=== PATIENT | female | born 1965 | race Caucasian/White ===

== ENCOUNTER 2020-07-06 13:58 | Outpatient (CLI) | payer BC, SELFPAY ==
--- NOTE | ~2020-07-06 | MM_ITS ---
EXAMINATION: MM screening [facility] BI w tiffani HISTORY: Screening mammogram TECHNIQUE: Craniocaudal and mediolateral oblique 3-D tomosynthesis images were obtained and synthetic 2-D images were generated. CAD analysis was submitted and interpreted. COMPARISON: 06/10/2019, 12/30/2018, 12/19/2018, 10/26/1917, 11/02/2016 BREAST PARENCHYMAL COMPOSITION: There are scattered areas of fibroglandular density. FINDINGS: RIGHT BREAST: There is a possible mass in the middle third of the central/lower breast best appreciat ed 4 cm from the nipple on the craniocaudal view. LEFT BREAST: There is no evidence of suspicious mass, calcification, or architectural distortion to s uggest malignancy. There has been no significant interval change. IMPRESSION: 1. Possible right breast mass. 2. Additional mammographic views and possible breast ultrasound are recommended. BI-RADS Category 0: Incomplete: Needs additional imaging evaluation. Reviewed, dictated and finalized at location A. IMPRESSION: 1. Possible right breast mass. 2. Additional mammographic views and possible breast ultrasound are recommended . BI-RADS Category 0: Incomplete: Needs additional imaging evaluation.
== END 2020-07-06 13:59 | disposition home or self-care (01) ==
LOC: ANHIMG 14:01
PROVIDERS: PCP Family Medicine; Visit Provider Family Medicine
DX: Z12.31 Encounter for screening mammogram for malignant neoplasm of breast (principal)
CPT/HCPCS: 77063; 77067

== ENCOUNTER 2020-08-09 12:51 | Outpatient (CLI) | payer BC, SELFPAY ==
--- NOTE | ~2020-08-09 | MMUS_ITS ---
EXAMINATION: MM diagnostic mammo unilat RT, US breast RT complete HISTORY: Follow-up right breast asymmetry TECHNIQUE: Additional 3-D tomosynthesis images of the right breast were performed and synthetic 2-D i mages were generated. CAD analysis was submitted and interpreted. High resolution right breast ultras ound was performed. COMPARISON: Comparison to multiple prior studies sequentially, with oldest reviewed study dated 11/02. BREAST PARENCHYMAL COMPOSITION: Breast composed of scattered areas of fibroglandular density FINDINGS: MAMMOGRAPHIC FINDINGS: There are no suspicious masses, calcifications or architectural distortion in the right breast to sug gest malignancy. ULTRASOUND: There is normal heterogeneous echotexture without focal solid or cystic mass. No evidence for maligna ncy. IMPRESSION: 1. No evidence for malignancy in the right breast. 2. Routine yearly screening mammogram and regular clinical breast examination are recommended. BI-RADS Category 1: Negative Reviewed, dictated and finalized at location A. STRATEGIC PARTNERSHIPS IMPRESSION: 1. No evidence for malignancy in the right breast. 2. Routine yearly screening mammogram and regular clinical breast examination a re recommended. BI-RADS Category 1: Negative
== END 2020-08-09 12:52 | disposition home or self-care (01) ==
PROVIDERS: PCP Family Medicine; Visit Provider Family Medicine
DX: R92.8 Other abnormal and inconclusive findings on diagnostic imaging of breast (principal)
CPT/HCPCS: 76641; 77065

== ENCOUNTER 2021-10-04 10:00 | Outpatient (CLI) | payer BC, SELFPAY ==
--- NOTE | ~2021-10-04 | MM_ITS ---
EXAMINATION: MM screening [facility] w tiffani HISTORY: Screening TECHNIQUE: Craniocaudal and mediolateral oblique 3-D tomosynthesis images were obtained and synthetic 2-D images were generated. CAD analysis was submitted and interpreted. COMPARISON: Comparison to multiple prior studies sequentially, with oldest reviewed study dated 11/04. BREAST PARENCHYMAL COMPOSITION: There are scattered areas of fibroglandular density. FINDINGS: There is no evidence of suspicious mass, calcification, or architectural distortion to sugg est malignancy in either breast. There has been no suspicious interval change. IMPRESSION: 1. No mammographic evidence of malignancy. 2. Recommend routine screening mammography in one year. BI-RADS Category 1: Negative Reviewed, dictated and finalized at location A. ETING FINANCIAL ANALYST
== END 2021-10-04 10:01 | disposition home or self-care (01) ==
LOC: ANHIMG 10:03
PROVIDERS: PCP Family Medicine; Visit Provider Family Medicine
DX: Z12.31 Encounter for screening mammogram for malignant neoplasm of breast (principal)
CPT/HCPCS: 77063; 77067

== ENCOUNTER 2022-07-11 12:27 | Outpatient (CLI) | payer BC, SELFPAY ==
--- NOTE | ~2022-07-11 | DEXA_ITS ---
Bone Density Report Name: JCARLOS AMADOR Age: 56 Sex: Female Ethnicity: White Date of : 1965 Indication: postmenopausal; screening for osteoporosis; hysterectomy; Referring Provider: NADINE, JEFFERY Jessica Study: Bone densitometry was performed. Exam Date: July 11, 2022 Accession number: [id number] Bone Density: Region BMD T-score Z-score Classification AP Spine(L1, L3, L4) 1.199 1.3 2.6 Normal Femoral Neck (Left) 0.992 1.3 2.5 Normal Total Hip (Left) 1.091 1.2 2.0 Normal Femoral Neck (Right) 0.996 1.3 2.5 Normal Total Hip (Right) 1.109 1.4 2.2 Normal Total Hip Mean 1.100 1.3 2.1 Normal World Health Organization criteria for BMD impression classify patients as: Normal (T-score at or above -1.0), Osteopenia (T-score between -1.0 and -2.5), or Osteoporosis (T-score at or below -2.5). 10-year Fracture Risk: FRAX not reported because: All T-scores for Spine Total, Hip Total, Femoral Neck at or above -1.0 Clinical Information Provided by Patient: Has the following medical conditions: Hysterectomy Patient maximum height was 66 Menopause Age: 45 Drinks caffeinated beverages Onset of menses at age 9 Number of children 7 Impression: The patient has normal bone mass. Discussion: BONE DENSITY IS ABOVE THE MINIMUM DESIRABLE LEVEL AT ALL SKELETAL SITES TESTED. This patient?s bone mineral density is above the minimum desirable level (T-score -1.0 or better) at all sites measured. The patient should follow a healthful lifestyle (good nutrition with adequate calcium and vitamin D, and appropriate weight-bearing exercise). Follow-Up: Consider repeating this study in 5 years or sooner if there is some new clinical indication. Reported by: [facility] on 07/12/2022 3:42:00 PM. Reviewed, dictated and finalized at location A. [facility] CENTERDarryl
== END 2022-07-11 12:28 | disposition home or self-care (01) ==
PROVIDERS: PCP Family Medicine; Visit Provider Family Medicine
DX: Z78.0 Asymptomatic menopausal state (principal)
CPT/HCPCS: 77080

== ENCOUNTER 2022-10-11 14:37 | Outpatient (CLI) | payer BC, SELFPAY ==
--- NOTE | ~2022-10-11 | MM_ITS ---
EXAMINATION: MM screening [facility] BI w tiffani HISTORY: Screening mammogram TECHNIQUE: Craniocaudal and mediolateral oblique 3-D tomosynthesis images were obtained and synthetic 2-D images were generated. CAD analysis was submitted and interpreted. COMPARISON: 10/04/2021, 08/09/2020, 07/06/2020, 06/10/2019 BREAST PARENCHYMAL COMPOSITION: There are scattered areas of fibroglandular density. FINDINGS: No suspicious mass, calcification, or architectural distortion are identified in either sabrina ast to suggest malignancy. There has been no suspicious interval change. IMPRESSION: 1. No mammographic evidence of malignancy. 2. Recommend routine screening mammography in one year. BI-RADS Category 1: Negative Reviewed, dictated and finalized at location A. UCT TRANSFER PUMPER
== END 2022-10-11 14:38 | disposition home or self-care (01) ==
PROVIDERS: PCP Family Medicine; Visit Provider Family Medicine
DX: Z12.31 Encounter for screening mammogram for malignant neoplasm of breast (principal)
CPT/HCPCS: 77063; 77067

== ENCOUNTER → 2023-07-24 14:36 | Outpatient (CLI) | payer BC, SELFPAY ==
--- NOTE | ~2023-07-24 | XR_ITS ---
XR hand LT min 3V DATE: 07/24/2023 15:06 INDICATION: Left hand pain TECHNIQUE: 3 views COMPARISON: None FINDINGS: There is slight osteoarthritis at the first carpal metacarpal joint. No fracture or dislocation, periosteal reaction or bone destruction, erosive change or chondrocalcino sis. IMPRESSION: Slight osteoarthritis at first carpometacarpal joint Reviewed, dictated and finalized at location B.
--- NOTE | ~2023-07-24 | XR_ITS ---
XR chest 2V DATE: 07/24/2023 15:06 INDICATION: Costochondral junction pain TECHNIQUE: 2 views COMPARISON: None FINDINGS: Normal heart size. No hilar or mediastinal enlargement. No pulmonary infiltrate or consolid ation, pleural effusion or pulmonary vascular congestion or pneumothorax is detected. IMPRESSION: No active cardiopulmonary disease Reviewed, dictated and finalized at location B.
--- NOTE | ~2023-07-24 | XR_ITS ---
XR wrist LT min 3V DATE: 07/24/2023 15:06 INDICATION: Pain TECHNIQUE: 4 views COMPARISON: None FINDINGS: No fracture or dislocation, periosteal reaction or bone destruction. Joint spaces are prese rved. No erosive change or chondrocalcinosis. IMPRESSION: Negative Reviewed, dictated and finalized at location B. IMPRESSION: Negative
--- NOTE | ~2023-07-24 | XR_ITS ---
XR shoulder LT min 2V DATE: 07/24/2023 15:06 INDICATION: Left shoulder pain TECHNIQUE: 4 views COMPARISON: None FINDINGS: No fracture or dislocation, periosteal reaction or bone destruction. No abnormal left shoul cindy soft tissue calcification. IMPRESSION: Negative Reviewed, dictated and finalized at location B. IMPRESSION: Negative
== END ==
PROVIDERS: PCP Family Medicine; Visit Provider Family Medicine
DX: M25.512 Pain in left shoulder (principal); M25.532 Pain in left wrist; M19.042 Primary osteoarthritis, left hand
CPT/HCPCS: 71046; 73030; 73110; 73130

== ENCOUNTER → 2023-11-11 14:00 | Outpatient (CLI) | payer BC, SELFPAY ==
--- NOTE | ~2023-11-11 | MM_ITS ---
EXAMINATION: MM screening [facility] BI w tiffani HISTORY: Screening mammogram TECHNIQUE: Craniocaudal and mediolateral oblique 3-D tomosynthesis images were obtained and synthetic 2-D images were generated. CAD analysis was submitted and interpreted. COMPARISON: 10/11/2022, 10/04/2021, 08/09/2020, 07/06/2020 BREAST PARENCHYMAL COMPOSITION: There are scattered areas of fibroglandular density. FINDINGS: No suspicious mass, calcification, or architectural distortion are identified in either sabrina ast to suggest malignancy. There has been no suspicious interval change. IMPRESSION: 1. No mammographic evidence of malignancy. 2. Recommend routine screening mammography in one year. BI-RADS Category 1: Negative Reviewed, dictated and finalized at location A. RY SAW OPERATOR
== END ==
PROVIDERS: PCP Family Medicine; Visit Provider Family Medicine
DX: Z12.31 Encounter for screening mammogram for malignant neoplasm of breast (principal)
CPT/HCPCS: 77063; 77067

== ENCOUNTER → 2024-07-20 16:23 | Outpatient (CLI) | payer BC, SELFPAY ==
--- NOTE | ~2024-07-20 | XR_ITS ---
EXAMINATION: XR sacroiliac joints min 3V, XR lumbar spine 2-3V DATE: 07/20/2024 17:02 INDICATION: Arthritis check with diffuse back pain TECHNIQUE: 1. Anteroposterior, lateral and coned-down lateral lumbosacral views of the lumbar spine were obtaine d. 2. AP and left and right oblique views of the bilateral sacralized joints were obtained. COMPARISON: None. FINDINGS: Lumbar spine: Hypoplastic right-sided riblets at L1. 6 degree lumbar levocurvature. Sagittal alignment is normal. V ertebral body heights are normal. Mild left-sided disc height loss at L3-L4 and more diffuse mild dis c height loss at L4-L5 and L5-S1. There is severe bilateral facet osteoarthritis at L5-S1. 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 Sacroiliac joints: Mild osteoarthritis at the bilateral sacroiliac joints. No erosions or subarticular sclerosis to sugg est an inflammatory sacroiliitis. No fractures or osteonecrosis. Bilateral hip joint spaces appear no rmal. Multiple fluid was in the pelvis. IMPRESSION: 1. 6 degrees lumbar levocurvature with mild at the lower lumbar spondylosis. 2. Mild bilateral sacroiliac osteoarthritis. Reviewed, dictated and finalized at location A. IMPRESSION: 1. 6 degrees lumbar levocurvature with mild at the lower lumbar spondylosis. 2. Mild bilateral sacroiliac osteoarthritis.
--- NOTE | ~2024-07-20 | XR_ITS ---
EXAMINATION: XR foot LT 2V, XR foot RT 2V DATE: 07/20/2024 17:02 INDICATION: Bilateral foot pain TECHNIQUE: 1. Dorsoplantar and lateral views of the left foot were obtained. 2. Dorsoplantar and lateral views of the right foot were obtained. COMPARISON: None. FINDINGS: Bone alignment is normal at both feet. No fractures. Both are symmetric and normal mild polyarticular osteoarthritis at the bilateral mid and forefeet most prominent at the bilateral first metatarsophal angeal joints. No erosions to suggest inflammatory arthritis. Soft tissues are unremarkable. IMPRESSION: 1. Minimal to mild polyarticular osteoarthritis at the bilateral mid and forefeet greatest at the fir st metatarsophalangeal joints. Reviewed, dictated and finalized at location A. IMPRESSION: 1. Minimal to mild polyarticular osteoarthritis at the bilateral mid and forefe et greatest at the first metatarsophalangeal joints.
--- NOTE | ~2024-07-20 | XR_ITS ---
EXAMINATION: XR hand LT 2V, XR hand RT 2V DATE: 07/20/2024 17:03 INDICATION: Diffuse bilateral hand pain. Arthritis. TECHNIQUE: 1. Posteroanterior and lateral views of the left hand were obtained. 2. Posteroanterior and lateral views of the right hand were obtained. COMPARISON: None. FINDINGS: Bilateral ulnar minus variance measuring 2 mm in the left and 2 mm on the right. Otherwise normal ali gnment at the bilateral hands and wrists. No fractures. Minimal to mild polyarticular osteoarthritis at the bilateral triscaphe, first carpometacarpal, first metacarpophalangeal and multiple interphalan geal joints. No erosions to suggest inflammatory arthritis. Soft tissues are unremarkable. IMPRESSION: 1. Typical distribution of minimal to mild polyarticular osteoarthritis at the bilateral hands. Reviewed, dictated and finalized at location A. IMPRESSION: 1. Typical distribution of minimal to mild polyarticular osteoarthritis at the bilateral hands.
== END ==
PROVIDERS: PCP Internal Medicine; Visit Provider Internal Medicine
DX: M53.3 Sacrococcygeal disorders, not elsewhere classified (principal); M19.071 Primary osteoarthritis, right ankle and foot; M19.072 Primary osteoarthritis, left ankle and foot; M19.041 Primary osteoarthritis, right hand; M19.042 Primary osteoarthritis, left hand
CPT/HCPCS: 72100; 72202; 73120; 73620

== ENCOUNTER 2025-02-03 15:01 | Outpatient (CLI) | payer BC, SELFPAY ==
--- NOTE | ~2025-02-03 | MM_ITS ---
EXAMINATION: MM screening [facility] BI w tiffani HISTORY: Screening TECHNIQUE: Craniocaudal and mediolateral oblique 3-D tomosynthesis images were obtained and synthetic 2-D images were generated. CAD analysis was submitted and interpreted. COMPARISON: Comparison to multiple prior studies sequentially, with oldest reviewed study dated 01/2019. BREAST PARENCHYMAL COMPOSITION: Not dense: There are scattered areas of fibroglandular density. FINDINGS: There is no evidence of suspicious mass, calcification, or architectural distortion to sugg est malignancy in either breast. There has been no suspicious interval change. IMPRESSION: 1. No mammographic evidence of malignancy. 2. Recommend routine screening mammography in one year. BI-RADS Category 1: Negative Reviewed, dictated and finalized at location A.
== END 2025-02-03 15:02 | disposition home or self-care (01) ==
LOC: MICIMG 15:01
PROVIDERS: PCP Internal Medicine; Visit Provider Internal Medicine
DX: Z12.31 Encounter for screening mammogram for malignant neoplasm of breast (principal)
CPT/HCPCS: 77063; 77067

== ENCOUNTER 2025-05-03 01:49 | Day surgery (SDC) | payer BC, SELFPAY ==
[2025-04-19 10:43] VITALS: BMI 22.1
--- OUTSIDE RECORDS SUMMARY | 2025-05-03 01:53 | XMS_ITS | Data Portability ---
Author Organization [place] [facility], Main Office Address [address] [place] [address] Assessment Encounter Date Assessment Date Assessment LastModified by Organization Details LastModified Time 03/29/2025 03/29/2025 03/25/2025: A1C 5.5 LDL 110 [email or web address] Not available 03/28/2025 16:20:49 Plan of Treatment Reminders Order Date Submit Date Provider Last Modified By Organization Details Last Modified Time Details Appointments Physical/ Annual Wellness 30 2025 08:00A Nusrat flores MD Not available Not available Not available Lab CBC w/ auto diff 2024 025 [email or web address] [facility], [address] , [place], [address], 04/26/2025 09:50:34 CMP, serum or plasma 2024 025 [email or web address] [facility], [address] , [place], [address], 04/05/2025 09:55:55 lipid panel, serum 2024 025 [email or web address] [facility], [address], [place], [address], 04/05/2025 09:56:07 HbA1c (hemoglob in A1c), blood 2024 025 [email or web address] [facility], [address] , [place], [address], 04/05/2025 09:56:16 TSH, serum or plasma 2024 025 [email or web address] [facility], [address], [place], [address], 04/05/2025 09:56:25 vitamin D, 25-hydrox y, total, serum 2024 025 [email or web address] [facility], [address], [place], [address], 04/05/2025 09:56:34 vitamin B12 + folate, serum or blood 2024 025 [email or web address] [facility], [address], [place], [address], 04/05/2025 09:56:43 HbA1c (hemoglob in A1c), blood 2024 025 [facility], [address] [place], [address], 01/14/2025 08:47:47 lipid panel, serum 2024 025 [facility], [address] [place], [address], 01/14/2025 08:47:47 lipid panel, serum [address] (Lab), [address] [place], [address], 03/06/2024 16:31:08 TSH, serum or plasma [address] (Lab), [address] [place], [address], 03/06/2024 16:31:47 CBC [address] (Lab), [address] [place], [address], 03/06/2024 16:32:11 glycohemo globin, total, blood 2023 024 [email or web address] [facility] (Lab), [address] [place], [address], 03/06/2024 16:31:20 CMP, serum or plasma 2023 024 [email or web address] (Lab), [address] [place], [address], 03/06/2024 16:31:33 Referral gynecolog ist referral - Please call patient to schedule an appointme nt. Thank you. 2024 025 TERRIE Mckinnon MD, [address] [facility] [address], [place], [address], 03/30/2025 09:36:29 gastroent erologist referral - Please call patient to schedule an appointme nt. Thank you 2024 025 [email or web address] Derrick Reilly MD, [address], [address], [place], [address], 04/20/2025 08:53:27 rheumatol ogist referral - Please call patient to schedule an appointme nt. Thank you. 2023 024 [email or web address] [facility]) , [address] [place], [address], 04/03/2024 08:40:33 Procedures None recorded. Surgeries None recorded. Imaging DEXA, axial skeleton - Please call patient to schedule. [facility]24 [facility] [address], [address], [place], [address], 04/28/2025 04:19:31 Medication Orders None recorded. Patient TargetsNo targets recorded. Patient InstructionsNo instructions recorded. 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 Thank you. Referring Physician: Merlin Gardiner, Family Medicine, Encounter Date: 03/06/2024 [employer]ar[employer] Supervisor Referral for Screening for malignant neoplasm of colon Please call patient to schedule an appointment. 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 Thank you. Referring Physician: Dao Muniz, Internal Medicine, Encounter Date: 03/29/2025 Results Created Date Observation Date Name Description Value Unit Range Abnormal Flag Note LastModifiedBy Organization Detail LastModifiedTime 11/20/19 24 11/20/2023 URINA LYSIS COMPL ETE/I RIS W/RFX color COLORL ESS Not Available [facility] (Lab) [address] [place], [address], 11/20/2023 19:24:39 11/20/19 24 11/20/2023 URINA LYSIS COMPL ETE/I RIS W/RFX appear TURBID abnormal Not Available [facility] (Lab) [address] [place], [address], 11/20/2023 19:24:39 11/20/19 24 11/20/2023 URINA LYSIS COMPL ETE/I RIS W/RFX specific gravity 1.003 1.001- 1.030 Not Available [facility] (Lab) [address] [place], [address], 11/20/2023 19:24:39 11/20/19 24 11/20/2023 URINA LYSIS COMPL ETE/I RIS W/RFX pH 6.5 pH_un its 5.0-9. 0 Not Available [facility] (Lab) [address] [place], [address], 11/20/2023 19:24:39 11/20/19 24 11/20/2023 URINA LYSIS COMPL ETE/I RIS W/RFX leukocytes 75 la/u L negati ve- abnormal Not Available [facility] (Lab) [address] [place], [address], 11/20/2023 19:24:39 11/20/19 24 11/20/2023 URINA LYSIS COMPL ETE/I RIS W/RFX nitrite NEGATI VE negati ve- Not Available [facility] (Lab) [address] [place], [address], 11/20/2023 19:24:39 11/20/19 24 11/20/2023 URINA LYSIS COMPL ETE/I RIS W/RFX protein NEGATI VE mg/dL negati ve- Not Available [facility] (Lab) [address] [place], [address], 11/20/2023 19:24:39 11/20/19 24 11/20/2023 URINA LYSIS COMPL ETE/I RIS W/RFX glucose NORMAL mg/dL normal - Not Available [facility] (Lab) [address] [place], [address], 11/20/2023 19:24:39 11/20/19 24 11/20/2023 URINA LYSIS COMPL ETE/I RIS W/RFX ketones NEGATI VE mg/dL negati ve- Not Available [facility] (Lab) [address] [place], [address], 11/20/2023 19:24:39 11/20/19 24 11/20/2023 URINA LYSIS COMPL ETE/I RIS W/RFX urobilinogen NORMAL mg/dL normal - Not Available [facility] (Lab) [address] [place], [address], 11/20/2023 19:24:39 11/20/19 24 11/20/2023 URINA LYSIS COMPL ETE/I RIS W/RFX bilirubin NEGATI VE mg/dL negati ve- Not Available [facility] (Lab) [address] [place], [address], 11/20/2023 19:24:39 11/20/19 24 11/20/2023 URINA LYSIS COMPL ETE/I RIS W/RFX blood NEGATI VE mg/dL negati ve- Not Available [facility] (Lab) [address] [place], [address], 11/20/2023 19:24:39 11/20/19 24 11/20/2023 URINA LYSIS COMPL ETE/I RIS W/RFX white blood cells 21-40 /i??h pfi?? 0-8 abnormal Not Available [facility] (Lab) [address] [place], [address], 11/20/2023 19:24:39 11/20/19 24 11/20/2023 URINA LYSIS COMPL ETE/I RIS W/RFX red blood cells 0-4 /i??h pfi?? 0-4 Not Available [facility] (Lab) [address] [place], [address], 11/20/2023 19:24:39 11/20/19 24 11/20/2023 URINA LYSIS COMPL ETE/I RIS W/RFX bacteria NONE Not Available [facility] (Lab) [address] [place], [address], 11/20/2023 19:24:39 11/20/19 24 11/20/2023 URINA LYSIS COMPL ETE/I RIS W/RFX squamous epithelial OCCASI ONAL /i??l pfi?? abnormal Not Available [facility] (Lab) [address] [place], [address], 11/20/2023 19:24:39 11/20/19 24 11/20/2023 URINA LYSIS COMPL ETE/I RIS W/RFX tranistional epithelial OCCASI ONAL /i??l pfi?? abnormal Not Available [facility] (Lab) [address] [place], [address], 11/20/2023 19:24:39 11/20/19 24 11/28/2023 SUSCE PTIBI LITY, AER+A NAERO B REF susceptibili ty, aer + anaerob SEE COMMEN T SENT TO REFER ENCE LAB; SEE SEPAR ATE REPOR T Not Available [facility] (Lab) [address] [place], [address], 11/28/2023 14:25:25 11/20/19 24 11/20/2023 urina lysis , dipst ick Leukocytes (reference range: negative la/ l) Small Not Available [address], [place], [address], 11/20/2023 12:42:39 11/20/19 24 11/20/2023 urina lysis , dipst ick Nitrite (reference rage: negative mg/dl) negati ve Not Available [address], [place], [address], 11/20/2023 12:42:39 11/20/19 24 11/20/2023 urina lysis , dipst ick Urobilinogen (reference range: 0.2-1 mg/dl) 0.2 Not Available [address], [place], [address], 11/20/2023 12:42:39 11/20/19 24 11/20/2023 urina lysis , dipst ick Protein (reference range: negative mg/dl) Negati ve Not Available [address], [place], [address], 11/20/2023 12:42:39 11/20/19 24 11/20/2023 urina lysis , dipst ick pH (reference range: 5-7) 7.0 Not Available [address], [place], [address], 11/20/2023 12:42:39 11/20/19 24 11/20/2023 urina lysis , dipst ick Blood (reference range: negative Leo/ l) Negati ve Not Available [address], [place], [address], 11/20/2023 12:42:39 11/20/19 24 11/20/2023 urina lysis , dipst ick Specific [place] (reference range: 1.005-1.030) 1.010 Not Available [address], [place], [address], 11/20/2023 12:42:39 11/20/19 24 11/20/2023 urina lysis , dipst ick Ketone (reference range: negative mg/dl) Negati ve Not Available [address], [place], [address], 11/20/2023 12:42:39 11/20/19 24 11/20/2023 urina lysis , dipst ick Bilirubin (reference range: negative mg/dl) Negati ve Not Available [address], [place], [address], 11/20/2023 12:42:39 11/20/19 24 11/20/2023 urina lysis , dipst ick Glucose (reference range: negative mg/dl) Negati ve Not Available [address], [place], [address], 11/20/2023 12:42:39 11/20/19 24 11/20/2023 urina lysis , dipst ick Appearance Clear Not Available [address], [place], [address], 11/20/2023 12:42:39 11/20/19 24 11/20/2023 urina lysis , dipst ick Color Pale Yellow Not Available [facility] [address], [place], [address], 11/20/2023 12:42:39 12/18/19 24 12/18/2023 URINA LYSIS COMPL ETE/I RIS W/RFX color LIGHT- YELLOW Not Available [facility] (Lab) [address] [place], [address], 12/18/2023 20:21:50 12/18/19 24 12/18/2023 URINA LYSIS COMPL ETE/I RIS W/RFX appear EXTRA TURBID abnormal Not Available [facility] (Lab) [address] [place], [address], 12/18/2023 20:21:50 12/18/19 24 12/18/2023 URINA LYSIS COMPL ETE/I RIS W/RFX specific gravity 1.004 1.001- 1.030 Not Available [facility] (Lab) [address] [place], [address], 12/18/2023 20:21:50 12/18/19 24 12/18/2023 URINA LYSIS COMPL ETE/I RIS W/RFX pH 6.5 pH_un its 5.0-9. 0 Not Available [facility] (Lab) [address] [place], [address], 12/18/2023 20:21:50 12/18/19 24 12/18/2023 URINA LYSIS COMPL ETE/I RIS W/RFX leukocytes >/=500 la/u L negati ve- abnormal Not Available [facility] (Lab) [address] [place], [address], 12/18/2023 20:21:50 12/18/19 24 12/18/2023 URINA LYSIS COMPL ETE/I RIS W/RFX nitrite NEGATI VE negati ve- Not Available [facility] (Lab) [address] [place], [address], 12/18/2023 20:21:50 12/18/19 24 12/18/2023 URINA LYSIS COMPL ETE/I RIS W/RFX protein NEGATI VE mg/dL negati ve- Not Available [facility] (Lab) [address] [place], [address], 12/18/2023 20:21:50 12/18/19 24 12/18/2023 URINA LYSIS COMPL ETE/I RIS W/RFX glucose NORMAL mg/dL normal - Not Available [facility] (Lab) [address] [place], [address], 12/18/2023 20:21:50 12/18/19 24 12/18/2023 URINA LYSIS COMPL ETE/I RIS W/RFX ketones NEGATI VE mg/dL negati ve- Not Available [facility] (Lab) [address] [place], [address], 12/18/2023 20:21:50 12/18/19 24 12/18/2023 URINA LYSIS COMPL ETE/I RIS W/RFX urobilinogen NORMAL mg/dL normal - Not Available [facility] (Lab) [address] [place], [address], 12/18/2023 20:21:50 12/18/19 24 12/18/2023 URINA LYSIS COMPL ETE/I RIS W/RFX bilirubin NEGATI VE mg/dL negati ve- Not Available [facility] (Lab) [address] [place], [address], 12/18/2023 20:21:50 12/18/19 24 12/18/2023 URINA LYSIS COMPL ETE/I RIS W/RFX blood 0.06 mg/dL negati ve- abnormal Not Available [facility] (Lab) [address] [place], [address], 12/18/2023 20:21:50 12/18/19 24 12/18/2023 URINA LYSIS COMPL ETE/I RIS W/RFX white blood cells PACKED /i??h pfi?? 0-8 abnormal Not Available [facility] (Lab) [address] [place], [address], 12/18/2023 20:21:50 12/18/19 24 12/18/2023 URINA LYSIS COMPL ETE/I RIS W/RFX white blood cell clumps OCCASI ONAL /i??h pfi?? none seen- abnormal Not Available [facility] (Lab) [address] [place], [address], 12/18/2023 20:21:50 12/18/19 24 12/18/2023 URINA LYSIS COMPL ETE/I RIS W/RFX red blood cells 0-4 /i??h pfi?? 0-4 Not Available [facility] (Lab) [address] [place], [address], 12/18/2023 20:21:50 12/18/19 24 12/18/2023 URINA LYSIS COMPL ETE/I RIS W/RFX bacteria MODERA TE abnormal Not Available [facility] (Lab) [address] [place], [address], 12/18/2023 20:21:50 12/18/19 24 12/18/2023 URINA LYSIS COMPL ETE/I RIS W/RFX mucous OCCASI ONAL /i??l pfi?? abnormal Not Available [facility] (Lab) [address] [place], [address], 12/18/2023 20:21:50 12/18/19 24 12/18/2023 URINA LYSIS COMPL ETE/I RIS W/RFX squamous epithelial OCCASI ONAL /i??l pfi?? abnormal Not Available [facility] (Lab) [address] [place], [address], 12/18/2023 20:21:50 12/18/19 24 12/18/2023 CULTU RE URINE urc ===== ===== ===== ===== ===== ===== ===== ===== ===== ===== ===== ===== ===== ===== ===== ===== ===== ===== ===== ===== ===== ===== ===== ===== Speci men NO.: [id number] Exam Statu s: Final Proce dure: CULTU RE URINE ===== ===== ===== ===== ===== ===== ===== ===== ===== ===== ===== ===== ===== ===== ===== ===== ===== ===== ===== ===== ===== ===== ===== ===== Iso/R esult : 01 Esche toño a coli Antim icrob ic/Do se TRACEE Syste tracee Urine __ ___ ___ Ampic illin >16 R R Aztre onam <=4 S S Cefot axime <=2 Cipro floxa devante <=0.2 5 S S Ertap enem <=0.5 SSUP SRES LTS SED RESU Genta micin <=2 [place] [id number] Oxida se React ion N Extra Sensi tive Be NEG Amp/S ulbac longoria <=8/4 S S Ceftr iaxon e <=1 S S Cefta zidim e <=1 S S Cefta zidim e/K Clav <=0.2 5 SUPP RESS Cefot axime /K Clavu <=0.5 SUPP RESS Cefaz robert 16 R R Cefep kanwal <=2 S S Cefur oxime 8 S S Levof loxac in <=0.5 S S Merop enem <=1 S S Pip/T azo <=8 S S Trime th/Gonsalez lfa <=2/3 8 S S Tetra cycli ne <=4 S S Tobra mycin <=2 S S TS ED R ESUL TS ED R ESUL Cefta zidim e/Zhou trent <=8 SSUP SRES LTS SED RESU Nitro furan toin <=32 S S Not Available [facility] (Lab) [address] [place], [address], 12/20/2023 11:22:37 12/18/19 24 12/18/2023 urina lysis , dipst ick Leukocytes (reference range: negative la/ l) Large Not Available [address], [place], [address], 12/18/2023 10:21:57 12/18/19 24 12/18/2023 urina lysis , dipst ick Nitrite (reference rage: negative mg/dl) negati ve Not Available [address], [place], [address], 12/18/2023 10:21:57 12/18/19 24 12/18/2023 urina lysis , dipst ick Urobilinogen (reference range: 0.2-1 mg/dl) 0.2 Not Available [address], [place], [address], 12/18/2023 10:21:57 12/18/19 24 12/18/2023 urina lysis , dipst ick Protein (reference range: negative mg/dl) Negati ve Not Available [address], [place], [address], 12/18/2023 10:21:57 12/18/19 24 12/18/2023 urina lysis , dipst ick pH (reference range: 5-7) 7.0 Not Available [address], [place], [address], 12/18/2023 10:21:57 12/18/19 24 12/18/2023 urina lysis , dipst ick Blood (reference range: negative Leo/ l) Modera te Not Available [address], [place], [address], 12/18/2023 10:21:57 12/18/19 24 12/18/2023 urina lysis , dipst ick Specific [place] (reference range: 1.005-1.030) 1.010 Not Available [address], [place], [address], 12/18/2023 10:21:57 12/18/19 24 12/18/2023 urina lysis , dipst ick Ketone (reference range: negative mg/dl) Negati ve Not Available [address], [place], [address], 12/18/2023 10:21:57 12/18/19 24 12/18/2023 urina lysis , dipst ick Bilirubin (reference range: negative mg/dl) Negati ve Not Available [address], [place], [address], 12/18/2023 10:21:57 12/18/19 24 12/18/2023 urina lysis , dipst ick Glucose (reference range: negative mg/dl) Negati ve Not Available [address], [place], [address], 12/18/2023 10:21:57 12/18/19 24 12/18/2023 urina lysis , dipst ick Appearance Clear Not Available [address], [place], [address], 12/18/2023 10:21:57 12/18/19 24 12/18/2023 urina lysis , dipst ick Color Pale Yellow Not Available [facility] [address], [place], [address], 12/18/2023 10:21:57 01/01/20 24 01/02/2024 CBC (INCL UDES DIFF/ PLT) white blood cell count 8.0 thous and/u L 3.8-10 .8 normal Not Available [address], [address], 01/02/2024 03:47:05 01/01/20 24 01/02/2024 CBC (INCL UDES DIFF/ PLT) red blood cell count 3.92 ileana on/uL 3.80-5 .10 normal Not Available [address], [address], 01/02/2024 03:47:05 01/01/20 24 01/02/2024 CBC (INCL UDES DIFF/ PLT) hemoglobin 12.5 g/dL 11.7-1 5.5 normal Not Available [address], [address], 01/02/2024 03:47:05 01/01/20 24 01/02/2024 CBC (INCL UDES DIFF/ PLT) hematocrit 38.3 % 35.0-4 5.0 normal Not Available [address], [address], 01/02/2024 03:47:05 01/01/20 24 01/02/2024 CBC (INCL UDES DIFF/ PLT) MCV 97.7 fL 80.0-1 00.0 normal Not Available [address], [address], 01/02/2024 03:47:05 01/01/20 24 01/02/2024 CBC (INCL UDES DIFF/ PLT) MCH 31.9 pg 27.0-3 3.0 normal Not Available [address], [address], 01/02/2024 03:47:05 01/01/20 24 01/02/2024 CBC (INCL UDES DIFF/ PLT) MCHC 32.6 g/dL 32.0-3 6.0 normal Not Available [address], [address], 01/02/2024 03:47:05 01/01/20 24 01/02/2024 CBC (INCL UDES DIFF/ PLT) RDW 13.0 % 11.0-1 5.0 normal Not Available [address], [address], 01/02/2024 03:47:05 01/01/20 24 01/02/2024 CBC (INCL UDES DIFF/ PLT) platelet count 351 thous and/u L 140-40 0 normal Not Available [address], [address], 01/02/2024 03:47:05 01/01/20 24 01/02/2024 CBC (INCL UDES DIFF/ PLT) MPV 9.5 fL 7.5-12 .5 normal Not Available [address], [address], 01/02/2024 03:47:05 01/01/20 24 01/02/2024 CBC (INCL UDES DIFF/ PLT) absolute neutrophils 5504 cells /uL 1500-7 800 normal Not Available [address], [address], 01/02/2024 03:47:05 01/01/20 24 01/02/2024 CBC (INCL UDES DIFF/ PLT) absolute lymphocytes 1816 cells /uL 850-39 00 normal Not Available [address], [address], 01/02/2024 03:47:05 01/01/20 24 01/02/2024 CBC (INCL UDES DIFF/ PLT) absolute monocytes 528 cells /uL 200-95 0 normal Not Available [address], [address], 01/02/2024 03:47:05 01/01/20 24 01/02/2024 CBC (INCL UDES DIFF/ PLT) absolute eosinophils 104 cells /uL 15-500 normal Not Available [address], [address], 01/02/2024 03:47:05 01/01/20 24 01/02/2024 CBC (INCL UDES DIFF/ PLT) absolute basophils 48 cells /uL 0-200 normal Not Available [address], [address], 01/02/2024 03:47:05 01/01/20 24 01/02/2024 CBC (INCL UDES DIFF/ PLT) neutrophils 68.8 % normal Not Available [address], [address], 01/02/2024 03:47:05 01/01/20 24 01/02/2024 CBC (INCL UDES DIFF/ PLT) lymphocytes 22.7 % normal Not Available [address], [address], 01/02/2024 03:47:05 01/01/20 24 01/02/2024 CBC (INCL UDES DIFF/ PLT) monocytes 6.6 % normal Not Available [address], [address], 01/02/2024 03:47:05 01/01/20 24 01/02/2024 CBC (INCL UDES DIFF/ PLT) eosinophils 1.3 % normal Not Available [address], [address], 01/02/2024 03:47:05 01/01/20 24 01/02/2024 CBC (INCL UDES DIFF/ PLT) basophils 0.6 % normal Not Available [address], [address], 01/02/2024 03:47:05 10/28/19 25 10/28/2024 urina lysis , dipst ick Leukocytes (reference range: negative la/ l) Negati ve Not Available [address], [place], [address], 10/28/2024 14:15:00 10/28/19 25 10/28/2024 urina lysis , dipst ick Nitrite (reference rage: negative mg/dl) negati ve Not Available [address], [place], [address], 10/28/2024 14:15:00 10/28/19 25 10/28/2024 urina lysis , dipst ick Urobilinogen (reference range: 0.2-1 mg/dl) 0.2 Not Available [address], [place], [address], 10/28/2024 14:15:00 10/28/19 25 10/28/2024 urina lysis , dipst ick Protein (reference range: negative mg/dl) Negati ve Not Available [address], [place], [address], 10/28/2024 14:15:00 10/28/19 25 10/28/2024 urina lysis , dipst ick pH (reference range: 5-7) 7.0 Not Available [address], [place], [address], 10/28/2024 14:15:00 10/28/19 25 10/28/2024 urina lysis , dipst ick Blood (reference range: negative Leo/ l) Non-He molyze d: Trace Not Available [address], [place], [address], 10/28/2024 14:15:00 10/28/1910/28/2024 urina lysis , dipst ick Specific [place] (reference range: 1.005-1.030) 1.010 Not Available [address], [place], [address], 10/28/2024 14:15:00 10/28/19 25 10/28/2024 urina lysis , dipst ick Ketone (reference range: negative mg/dl) Negati ve Not Available [address], [place], [address], 10/28/2024 14:15:00 10/28/19 25 10/28/2024 urina lysis , dipst ick Bilirubin (reference range: negative mg/dl) Negati ve Not Available [address], [place], [address], 10/28/2024 14:15:00 10/28/19 25 10/28/2024 urina lysis , dipst ick Glucose (reference range: negative mg/dl) Negati ve Not Available [address], [place], [address], 10/28/2024 14:15:00 01/22/10/28/2024 urina lysis , dipst ick Appearance Clear Not Available [facility] [address], [place], [address], 10/28/2024 14:15:00 10/28/19 25 10/28/2024 urina lysis , dipst ick Color Pale Yellow Not Available [address], [place], [address], 10/28/2024 14:15:00 03/25/20 25 03/25/2025 LIPID PANEL , STAND NELIA cholesterol, total 197 mg/dL <200 normal Not Available [address], [address], 03/25/2025 22:34:34 03/25/20 25 03/25/2025 LIPID PANEL , STAND NELIA HDL cholesterol 66 mg/dL > or = 50 normal Not Available [address], [address], 03/25/2025 22:34:34 03/25/20 25 03/25/2025 LIPID PANEL , STAND NELIA triglyceride s 103 mg/dL <150 normal Not Available [address], [address], 03/25/2025 22:34:34 03/25/20 25 03/25/2025 LIPID PANEL , STAND NELIA LDL-choleste rol 110 mg/dL _(leia c) high Refer ence range : <100 Neha able range <100 mg/dL for prima ry preve ntion ; <70 mg/dL for patie nts with CHD or diabe tic patie nts with > or = 2 CHD risk facto rs. LDL-C is now calcu lated using the Radha n-Hop kins calcu latmichael n, which is a valid ated novel metho d provi marcellus maurisio r accur acy than the Fried amber equat ion in the estim ation of LDL-C . Radha harvey SS et al. ANDRE. 2013; 310(1 9): 2061- 2068 (http ://ed ucati on.Qu Eugene sudheerPlatformQs. com/f aq/FA Q164) Not Available [facility] [id number], [place], [address], 03/25/2025 22:34:34 03/25/20 25 03/25/2025 LIPID PANEL , STAND NELIA chol/HDLC ratio 3.0 (calc ) <5.0 normal Not Available [facility] [address], [place], [address], 03/25/2025 22:34:34 03/25/2003/25/2025 LIPID PANEL , STAND NELIA non HDL cholesterol 131 mg/dL _(leia c) <130 high For patie nts with diabe toan plus 1 major ASCVD risk facto r, treat ing to a non-H DL-C goal of <100 mg/dL (LDL- C of <70 mg/dL ) is consi dered a thera peuti c optio n. Not Available [facility] [address], [place], [address], 03/25/2025 22:34:34 03/25/2003/25/2025 HEMOG LOBIN A1C hemoglobin A1C 5.5 %_of_ total _HGB <5.7 normal For the purpo se of niels stoll for the prese nce of diabe toan: <5.7% Consi stent with the absen ce of diabe toan 5.7-6 .4% Consi stent with incre ased risk for diabe toan (pred iabet es) > or =6.5% Consi stent with diabe toan This assay resul t is consi stent with a decre ased risk of diabe toan. Curre ntly, no conse nsus exist s jamison germain use of hemog lobin A1c for diagn osis of diabe toan in child charlene. Accor ding to Ameri can Diabe toan Assoc iatio n (ADA) guide lines , hemog lobin A1c <7.0% repre sents optim al contr ol in non-p regna nt diabe tic patie nts. Diffe rent metri cs may apply to speci fic patie nt popul ation s. Stand ards of Medic al Care in Diabe toan(A DA). Not Available [facility] [address] [place], [address], 03/25/2025 22:34:35 Result Notes None recorded. Problems Name Problem SNOMED Code Status Onset Date Resolution Date Notes Provider Name and Address Organization Details Recorded Time Venous varices 334240517 Active 2016 [facility] 19:13[facility]45 Constipation 72909938 Active 2016 Not Available [facility] 3 19:13:45 Sinusitis 77896611 Active 2016 Not Available [facility] 3 19:13:45 Eczema 97433472 Active 2016 Not Available [facility] 3 19:13:45 Seasonal allergy 501764025 Active 2016 Not Available [facility] 3 19:13:45 Dysuria 44945537 Active 2022 Jessica Andino LPN null, [facility] 3 11:48:08 Thrombocytosi s 3127426 Active 2022 Deyanira Villegas MD [address], [place] [address], [place], [address] , [facility] 3 11:41:57 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 2022 Deyanira Villegas MD [address], [facility] [address], [place], [address] , [facility] 3 11:55:50 Onychomycosis of toenails 877206061 Active 2022 Deyanira Villegas MD [address], [place] [address], [place], [address] , [facility] 3 12:00:16 Cough 82275190 Active 2022 Deyanira Villegas MD [address], [address], [place], [address] , [place] [facility] 3 12:00:57 Pain of multiple joints 18585736 Active 2022 Deyanira Villegas MD [address], [address], [place], [address] , [place] [facility] 3 12:50:55 Leukocytosis 277671094 Active 2023 Deyanira Villegas MD [address], [address], [place], [address] , [place] [facility] 4 11:30:34 Acute urinary tract infection 383911126 Active 2023 Deyanira Villegas MD [address], [address], [place], [address] , [place] [facility] 4 13:43:01 Motion sickness 87189814 Active 2023 PHOEBE Arboleda [address], [address], [place], [address] , [place] [facility] 4 16:49:25 Vitamin D below reference range 968312835 Active 2024 Dao griffiths MD [address], [address], [place], [address] , [place] [facility] 5 16:19:49 Hyperlipidemi a 52444692 Active 2024 Dao griffiths MD [address], [address], [place], [address] , [place] [facility] 5 16:21:16 Serum vitamin B12 below reference range 246355681 Active 2024 Dao griffiths MD [address], [address], [place], [address] , [place] [facility] 5 16:22:16 Psoriasis 8460057 Active 2024 Dao griffiths MD [address], [address], [place], [address] , [facility] [facility] 5 14:51:01 Allergic rhinitis 59605108 Active 2024 Dao griffiths MD [address], [place], [address] , [facility] [facility] 5 14:51:15 Problem Notes None recorded. Procedures Surgical History Date Name Laterality Status Provider Name and Address Organization Details Recorded Time section completed Not Available [facility] 12/05/2022 19:12:46 total hysterectomy with removal of both tubes and ovaries completed Not Available [facility] 19:12:46 Imaging Results None recorded. Procedure Notes None recorded. Medical Equipment None Reported. Allergies No known drug allergies Medications Name Sig Start Date Stop Date Status Note LastModified by Organization Details LastModified Time amoxicill in 500 mg capsule TAKE 1 CAPSULE BY MOUTH THREE TIMES DAILY 12/23 completed Not Available Not Available Not Available doxycycli ne hyclate 100 mg capsule TK 1 C PO D WITH FOOD FOR 30 DAYS 09/21 completed Not Available Not Available Not Available azithromy devante 250 mg tablet 06/18 completed Not Available Not Available Not Available fluconazo le 150 mg tablet TAKE 1 TABLET BY MOUTH FOR ONE DAY. REPEAT IN 1 WEEK IF NO IMPROVEM ENT. 12/23 completed Not Available Not Available Not Available phenazopy ridine 200 mg tablet TAKE 1 TABLET BY MOUTH THREE TIMES DAILY FOR 2 DAYS 12/23 completed Not Available Not Available Not Available prednison e 20 mg tablet TAKE 2 TABLETS BY MOUTH EVERY DAY FOR 5 DAYS 12/23 completed Not Available Not Available Not Available Tubersol 5 tub. unit/0.1 mL intraderm al injection solution 0.1 ml IM x 1 06/25 completed [facility] [id number] 98 Not Available Not Available Not Available doxycycli ne hyclate 50 mg capsule TK 1 C PO D WITH FOOD. 10/13 completed Not Available Not Available Not Available metronida zole 500 mg tablet Take 1 tablet every 8 hours by oral route for 7 days. active Not Available Not Available No t Available ciproflox acin 500 mg tablet TAKE 1 TABLET BY MOUTH EVERY 12 HOURS FOR 10 DAYS 12/23 completed Not Available Not Available Not Available sulfameth oxazole 800 mg-trimet hoprim 160 mg tablet TAKE 1 TABLET BY MOUTH EVERY 12 HOURS FOR 7 DAYS 12/23 completed Not Available Not Available Not Available terbinafi ne HCl 250 mg tablet TAKE 1 TABLET BY MOUTH EVERY DAY 07/24 completed Not Available Not Available Not Available amoxicill in 875 mg tablet TK 1 T PO Q 12 H FOR 7 DAYS active Not Available Not Available No t Available estradiol 1 mg tablet TAKE 1 TABLET BY MOUTH EVERY DAY 10/11 completed Not Available Not Available Not Available acyclovir 5 % topical ointment APPLY TO THE AFFECTED AREA(S) BY TOPICAL ROUTE EVERY 6 TIMES PER DAY x 7 days 01/19 completed Not Available Not Available Not Available fluocinol one 0.01 % topical body oil DALLIN EXT AA BID 12/23 completed Not Available Not Available Not Available betametha sone dipropion ate 0.05 % topical cream APPLY A THIN LAYER TO THE AFFECTED AREA(S) BY TOPICAL ROUTE ONCE DAILY 07/06 completed Not Available Not Available Not Available hydrocort isone 2.5 % topical cream active Not Available Not Available Not Available scopolami ne 1 mg over 3 days transderm al patch APPLY 1 PATCH TOPICALL Y TO THE SKIN EVERY 72 HOURS 12/23 completed Not Available Not Available Not Available fluticaso ne propionat e 50 mcg/actua tion nasal spray,gracie pension [place] 1 spray every day by intranas al route. 2016 active Not Available Not Available Not Avai lable doxycycli ne hyclate 100 mg tablet 09/21 completed Not Available Not Available Not Available amoxicill in 875 mg-potass ium clavulana te 125 mg tablet TAKE 1 TABLET BY MOUTH EVERY 12 HOURS FOR 7 DAYS 04/16 completed Not Available Not Available Not Available clobetaso l 0.05 % shampoo APPLY TOPICALL Y TO THE SCALP EVERY DAY active Not Available Not Available No t Available nitrofura ntoin monohydra te/macroc rystals 100 mg capsule TAKE 1 CAPSULE BY MOUTH EVERY 12 HOURS FOR 7 DAYS 12/23 completed Not Available Not Available Not Available senna 12/23 completed Not Available Not Available Not Available Zyrtec 2016 active Not Available Not Available Not Avai parrish Senchidi S active Not Available Not Avail able Not Available Amitiza 8 mcg capsule Take 1 capsule twice a day by oral route. 02/13 completed Not Available Not Available Not Available dapsone 5 % topical gel 07/06 completed Not Available Not Available Not Available doxycycli ne hyclate 50 mg tablet 07/06 completed Not Available Not Available Not Available Eucrisa 2 % topical ointment APPLY A THIN LAYER TO THE AFFECTED AREA(S) BY TOPICAL ROUTE 2 TIMES PER DAY 07/06 completed Not Available Not Available Not Available Linzess 72 mcg capsule Take 1 capsule every day by oral route. 02/13 completed Not Available Not Available Not Available Skyrizi 150 mg/mL subcutane ous pen injector active Not Available Not Available Not Available Vitals Date Recorded Body height Body mass index (BMI) Body weight Body temperature Heart rate Oxygen saturation Oxygen saturation in Arterial blood by Pulse oximetry Pain severity - 0-10 verbal numeric rating [Score] - Reported Systolic And Diastolic Provider Name and Address Organization Details Last Updated DateTime 5 167.64 cm 22.5 kg/m2 01250.1 4 g 98.2 [degF] 81 /min 98 % 98 % 3 114/74 mm[Hg] Jewels Keith MA [employer] [facility] 5 15:22:56 Date Recorded Body weight Body mass index (BMI) Body height Body temperature Heart rate Oxygen saturation Oxygen saturation in Arterial blood by Pulse oximetry Systolic And Diastolic Provider Name and Address Organization Details Last Updated DateTime 4 83951.1 5 g 22.1 kg/m2 167.64 cm 97.1 [degF] 73 /min 98 % 98 % 122/84 mm[Hg] Mona Guadalupe RN [facility] 4 11:00:40 Date Recorded Body height Body mass index (BMI) Body weight Body temperature Heart rate Systolic And Diastolic Provider Name and Address Organization Details Last Updated DateTime 5 167.64 cm 22.6 kg/m2 14149.9 3 g 98.2 [degF] 84 /min 118/78 mm[Hg] [facility] [place] [facility] [facility] 14:30:11 Social History Question Answer Notes LastModified by Organizat ion Details LastModified Time Tobacco Smoking Status Never Smoker Not Available [facility] 12/05/2022 19:12:44 What Is Your Level Of Caffeine Consumption? Occasional [id number] Information not available 12/05/2022 In The 14 Days Before Symptom Onset, Have You Had Close Contact With A Laboratory-confir med COVID-19 While That Case Was Ill? No Information not available 12/23/2024 In The 14 Days Before Symptom Onset, Have You Had Close Contact With A Person Who Is Under Investigation For COVID-19 While That Person Was Ill? No Information not available 12/23/2024 What Type Of Diet Are You Following? REGULAR Information not available 12/23/2024 Have There Been Any Changes To Your Family Or Social Situation? No Information no t available 12/23/2024 Do You Use Insect Repellent Routinely? No Information not available 12/23/2024 Where Do You Live? [facility] Information not available 12/23/2024 What Was The Date Of Your Most Recent Tobacco Screening? 03/29/2025 [email or web address] Information not available 03/29/2025 Do You Have Any Pets? No Information not available 12/23/2024 What Is Your Relationship Status? [id number] Information not available 12/05/2022 Do You Use Your Seat Belt Or Car Seat Routinely? Yes [id number] Information not available 12/05/2022 Do You Have Smoke And Carbon Monoxide Detectors In Your Home? Yes Information not available 12/23/2024 Are You Passively Exposed To Smoke? No Information no t available 12/23/2024 Are There Any Smokers In Your House? No Information not available 12/23/2024 Do You Participate In Social Media? No [id number] Information not available 12/05/2022 Do You Use Sunscreen Routinely? No Information not available 12/23/2024 Has Tobacco Cessation Counseling Been Provided? No [id number] Information not available 12/05/2022 Have You Recently Traveled Abroad? No Information not available 12/23/2024 Do You Have Any Dietary Restrictions? No Information not available 12/23/2024 Sex: Unknown Functional Status Question Answer Note LastModified by Organizat ion Details LastModified Time Do you use any illicit or recreational drugs? No [id number] Information not available 12/05/2022 Do you or have you ever used any other forms of tobacco or nicotine? No [id number] Information not available 12/05/2022 What is your level of alcohol consumption? None [id number] Information not available 12/05/2022 Are you currently employed? 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 Heavy Information not available 12/23/2024 Mental Status Question Answer Note LastModified by Organizat ion Details LastModified Time Do you feel stressed (tense, restless, nervous, or anxious, or unable to sleep at night)? [id number] Information not available 12/05/2022 Family History Relationship Description Onset Age of this Age Resolved Age Notes LastModified by Organization Details LastModified Time Father Malignant lymphoma [id number] Not available 12/05/2022 19:12:46 Notes:No breast, colon, ovar y Medical History No medical history recorded. Gynecological History Statement/Question Response How many live births 7 Date of Last Colonoscopy Most Recent Bone Density Date of LMP Date of Last Pap Smear Current Control Method Hysterectom y Most Recent Mammogram Obstetrics History GPAL:G 7 P 6 1 0 7 Type Value Multiple Births 0 Full Term 6 Induced 0 Spontaneous 0 Premature 1 Living 7 Ectopics 0 Total 7 Immunizations Vaccine Type Date Status Note Provider Nam e and Address Organization Details Recorded Time COVID-19, mRNA, LNP-S, PF, 30 mcg/0.3 mL dose 02/03/2021 completed Not Available [facility] 12/27/202 3 10:50:46 COVID-19, mRNA, LNP-S, PF, 30 mcg/0.3 mL dose 01/05/2021 completed Not Available [facility] 10:50:46 COVID-19, mRNA, LNP-S, PF, 30 mcg/0.3 mL dose 10/13/2021 completed Sirisha Leal null, [facility] 04/02/2023 16:09:05 COVID-19, mRNA, LNP-S, PF, 30 mcg/0.3 mL dose 01/10/2021 completed Sirisha Leal null, [facility] 04/02/2023 16:09:05 COVID-19, mRNA, LNP-S, PF, 30 mcg/0.3 mL dose 02/01/2021 completed Sirisha Leal null, [facility] 04/02/2023 16:09:05 Influenza, split virus, quadrivalent, PF 10/13/2021 completed Sirisha Leal null, [facility] 04/02/2023 16:09:05 Influenza, split virus, quadrivalent, PF 07/24/2023 completed Deyanira Villegas MD [address] [place] [address], [address], [facility] 08/04/2023 18:48:10 Tdap 03/06/2024 completed Mona Guadalupe RN null, [facility] 03/06/2024 16:30:34 Influenza, split virus, trivalent, PF 10/28/2024 completed Heather Psoada RN null, [facility] 10/28/2024 14:56:00 Past Encounters Encounter ID Performer Location Encounter Start Date Encounter Closed Date Diagnosis/Indication Diagnosis SNOMED-CT Code Diagnosis ICD10 Code Diagnosis Note [id number] Deyanira Villegas MD [facility] Primary Care [address] [place] [address] 10/11/2021 00:00:00 10/11/2021 16:28:22 [id number] MD MICHAEL FinkMo [address] [place] [address] 10/15/2022 00:00:00 10/15/2022 18:27:34 [id number] XOCHITL Call [facility] Primary Care [place] [address] [facility] [address] [place] [address] 03/29/2023 11:57:33 03/29/2023 17:27:48 Dysuria 79556243 R30.0 [id number] Deyanira Villegas MD [facility] Primary Care [place] [address] [facility] [address] [place] [address] 05/23/2023 11:14:10 05/23/2023 12:04:12 Thrombocytosis 4350649 D75.839 repeat cbd in October to monitor platelets Adult heal th examination 996276889 Z00.00 Z13.220 Z13.1 fasting labs up to datedexa 2021 normal repeat 2026mammog barry normal 10/2022 repeat 10/2023s/p complete hysterecto my, no pap neededprev elizabeth 13 bowflu yearlycovi d boosterpne umovax 23 at age 64colonosc opy age 59 Costal chondritis 349481 04 M94.0 turmeric 500 mg bid Onychomyco sis of toenails 775411655 B35.1 liver enzymes normalterb inafine 250 mg daily x 3 months Cough 34207442 R05.9 resolvingc all/return if no improvemen t in 1-2 weeks or sooner if neededrevi ewed s/s that warrant urgent/kelly rgent eval in meantime [id number] Deyanira Villegas MD [facility] Primary Care [place] [address] [facility] [address] [place] [address] 07/24/2023 12:32:03 07/24/2023 13:04:30 Pain of multiple joints 55602278 M25.50 M25.512 M25.532 M79.642 check labs and xrays Costal chondritis 801274 04 M94.0 Thrombocytosis 2705036 D 75.839 Administra tion of influenza vaccine 23598654 Z23 [id number] Deyanira Villegas MD [facility] Primary Care [place] [address] [place] [address] 10/02/2023 10:49:06 10/02/2023 11:26:05 [id number] Deyanira Villegas MD [facility] Primary Care [place] [address] [place] [address] 11/20/2023 12:43:14 11/20/2023 13:09:45 [id number] Deyanira Villegas MD [facility] Primary Care [place] [address] [place] [address] 12/18/2023 10:32:13 12/19/2023 12:28:10 [id number] [facility] [place] [address] [place] [address] 03/06/2024 10:49:38 03/06/2024 11:58:53 Hyperlipidemia screening 135632751 Z13.220 Diabetes m ellitus screening 817510589 Z13.1 Thyroid di sorder screening 430398979 Z13.29 Anemia screening 8695742 07 Z13.0 Adult heal th examination 621653380 Z00.00 Encouraged fresh fruits and veggies-hi gh intake bothIncrea se daily water intake-8 glasses/da yEncourage 30 mins of daily exercise-d oes exerciseCo lonoscopy- due next yearWell woman exams-hyst erectomy, no mammo neededDEXA -no hxLDCT-not a smoker Referral needed 81908642 9 Z76.89 Administra tion of tetanus vaccine 277718871 Z23 [id number] PHOEBE Aburto [facility] Primary Care [place] [address] [place] [address] 10/28/2024 14:12:42 10/28/2024 14:45:23 [id number] PHOEBE Aburto [facility] Primary Care [place] [address] [place] [address] 12/23/2024 15:14:34 12/23/2024 15:35:17 Screening for malignant neoplasm of colon 397924266 Z12.11 Diabetes m ilianaitus screening 219622312 Z13.1 [id number] Dao griffiths MD [facility] Primary Care [place] [address] [facility] [address] [place] [address] 03/29/2025 14:18:50 03/29/2025 14:53:01 Screening due 640884476 Z13.9 C-scope: States today 03/29/2025 that she is scheduled to have this in 04/2025 Mammogram: States that she did get this last month in 02/2025, she will try to get the report, was told it was negative DEXA: Get this WWE: Get this Get yearly flu shot, get tdap if not doneCan do COVID 19 boosterCan do Shingrix vaccine and RSV vaccineCan do Prevnar #20 RTC in 12 months for another annual adult visit as per her request, do labs, ER if worse, she verbalized her understand ing of the above Postmenopausal state 764 [address]640 Z78.0 Well woman health examination 595816044 Z01.419 Adult heal th examination 847308268 Z00.00 [address]504 L40.[address] Leggett clobetasol On skyrizi Allergic rhinitis 778996 04 J30.9 On flonaseOn zyrtec Hyperlipidemia 95408377 E78.5 Declined any medsStates that she was non compliant with her diet and will diet more, she is very activeRepe at the labs Health Concerns Section Related Observation LastModified by Organization Detai ls LastModified Time None Recorded Concern Status LastModified by Organization Details LastModified Time None Recorded Advance Directives Directive None Recorded Payers Insurance Date Sequence Insurance Name Policy Number Policy Jon Covered Member ID Jon Member ID Guarantor Name 03/26/2025 1 [place] [id number] Dejuan Mckeon [id number] Sara Mckeon Notes Date Note Type Note Provider Name and Address Organization Details Recorded Time 03/06/2024 text/html pt is here for annual physical XOCHITL Arboleda-Thor [address] [facility], [address], [place], [address], [employer] 03/06/2024 11:48:46 12/23/2024 text/html ROS as noted in the HPI Patient is a 59 year old female that presents to the office to establish care. Patient was previously seeing PHOEBE Arboleda. Patient's last annual wellness was 02/2024. Patient reports she is doing well overall, would like to have labs checked for diabetes due to being told she was borderline. Patient continues to see Rheumatology every 3 months, gets Skyrizi infusions and is doing well. Mammogram is scheduled in January. Patient is due to colonoscopy, will order. PHOEBE Aburto [address], [address], [place], [address], [employer] 12/28/2024 14:05:15 03/29/2025 text/html OV 03/29/2025:Here to establish care and for her annual adult wellness visit Present Hx:Psoriasis Here to discuss above and to discuss her labs Dao Muniz MD [address], [address], [place], [address], [employer] 03/29/2025 14:56:38 OBGyn Episode No OBEpisode recorded.
[2025-05-03 11:11] VITALS: BP 132/51; PULSE 86; RESP 16; TEMP 36.7; O2SAT 99
[2025-05-03] MEDS: LACTATED RINGERS 1,000 ML 150 ML IV CONT (11:12)
--- NOTE | 2025-05-03 11:38 | WPDANESEPPF ---
Anes - Initial Pre Proc Eval Procedure: Operation Date: 05/03/25 12:30 Proposed Procedures p Screening Colonoscopy - Joe Alvarez MD Date/Time: 05/03/25 11:38 Surgeon: Joe Alvarez MD Pre Op Diagnosis: Encounter for screening for malignant neoplasm of Patient Data Age: 59 Gender: F Height: 1.68 m Weight: 60.7 kg Last Vital Signs Temp 36.7 C 05/03/25 11:11 Pulse 86 05/03/25 11:11 Resp 16 05/03/25 11:11 BP 132/51 L 05/03/25 11:11 Pulse Ox 99 05/03/25 11:11 O2 Del Method Room Air 05/03/25 11:11 Allergies Allergy/AdvReac Type Severity Reaction Status Date / Time No Known Allergies Allergy Verified 04/19/25 10:40 Home Medications ?Medication ?Instructions ?Recorded ?Confirmed ?Type cetirizine 10 mg tablet (24Hour 10 mg PO DAILY PRN allergy symptoms 04/19/25 05/03/25 History Allergy) risankizumab-rzaa 150 mg/mL 150 mg subcut .q12w 04/19/25 05/03/25 History subcutaneous pen injector (Skyrizi) Patient hx anesthesia problems: none Family hx anesthesia problems: none Results Review: All pre-operative results and documents have been reviewed as part of the pre-operative evaluation. [facility] Family History Family History Mother Patient's mother is in good health Father Patient's father is in good health Family history of lymphoma Sibling Patient's sister is in good health Social History Social History Smoking status: Never smoker Alcohol intake: never Substance use: never Substance use type: does not use Living arrangements: with family Spiritual care concerns: No Anes - Eval Final PreProcedure Day of Procedure 05/03/25 11:38 Patient weight: normal Heart: regular rate and rhythm Lungs: clear to auscultation Airway: Mallampati scale class II Neurological: alert and oriented Last oral intake: >/= 8 hours ASA classification: III Emergent: no Anesthetic plan: proceed Anesthesia type and monitoring: general GIVS and standard monitoring Results Review: All pre-operative results and documents have been reviewed as part of the pre-operative evaluation. Informed Consent: The patient's anesthetic plan and its attendant risks and benefits were discussed with the patient/family/POA. Questions were solicited and answers provided to the satisfaction of the patient/family/POA.
--- NOTE | 2025-05-03 12:40 | PM.HPGS ---
History of Present Illness History of Present Illness Consent: Risks, benefits, and alternatives have been discussed and questions answered. Patient agrees to proceed with procedure. Chief complaint: Encounter for screening for malignant neoplasm of Narrative: Sara Mckeon is a 59 year old female here for screening colonoscopy, last one 10 years ago Review of Systems Review of Systems: All systems reviewed & are unremarkable except as noted in HPI and below PMFSH Past Medical History Medical History (Updated 05/03/25 @ 12:42 by Joe Alvarez MD) Colon cancer screening Family History Family History Mother Patient's mother is in good health Father Patient's father is in good health Family history of lymphoma Sibling Patient's sister is in good health Social History Social History Smoking status: Never smoker Alcohol intake: never Substance use: never Substance use type: does not use Living arrangements: with family Spiritual care concerns: No Meds Home Medications and Allergies Home Medications ?Medication ?Instructions ?Recorded ?Confirmed ?Type cetirizine 10 mg tablet (24Hour 10 mg PO DAILY PRN allergy symptoms 04/19/25 05/03/25 History Allergy) risankizumab-rzaa 150 mg/mL 150 mg subcut .q12w 04/19/25 05/03/25 History subcutaneous pen injector (Skyrizi) Allergies Allergy/AdvReac Type Severity Reaction Status Date / Time No Known Allergies Allergy Verified 04/19/25 10:40 Vital Signs Vital Signs - 24 hr 05/03/25 11:11 Temperature 98.1 F Pulse Rate 86 Respiratory Rate 16 Blood Pressure 132/51 L Pulse Oximetry 99 Oxygen Delivery Room Air Exam Const: General: comfortable and no acute distress HENMT: Face/Nose/Sinus: Normal nares present Eyes: General: appearance normal, both eyes and all related structures Neck: Neck: no JVD Resp: Auscultation: clear to auscultation bilaterally Cardio: Rate: regular rate Rhythm: regular rhythm GI: Inspection: non-distended GI Palp: Yes Soft to palpation Skin: General skin exam: normal color Neuro: Speech: normal speech Extrem: General: normal to inspection Psych: Mental Status: mental status grossly normal Assessment and Plan Assessment and plan (1) Colon cancer screening: Code(s): Z12.11 - Encounter for screening for malignant neoplasm of colon Status: Acute Assessment and Plan: colonoscopy
[2025-05-03 12:58] VITALS: BP 130/73; PULSE 74; RESP 20; O2SAT 100
[2025-05-03 13:08] VITALS: BP 119/73; PULSE 73; RESP 23; O2SAT 100
[2025-05-03 13:18] VITALS: BP 119/72; PULSE 68; RESP 18; O2SAT 100
== END 2025-05-03 13:24 | disposition home or self-care (01) ==
PROVIDERS: PCP Internal Medicine; Referring Provider Nurse Practitioner Family; Visit Provider Internal Medicine Gastroenterology
PROC: 0DJD8ZZ Inspection of Lower Intestinal Tract, Via Natural or Artificial Opening Endoscopic (ICD-10-PCS; CPT 45378; principal; 2025-05-03 12:30)
DX: Z12.11 Encounter for screening for malignant neoplasm of colon (principal); K64.8 Other hemorrhoids; K57.30 Diverticulosis of large intestine without perforation or abscess without bleeding; Z79.85 Long-term (current) use of injectable non-insulin antidiabetic drugs; Z80.7 Family history of other malignant neoplasms of lymphoid, hematopoietic and related tissues
CPT/HCPCS: 45378; J2003; J2704; J7120

== ENCOUNTER 2025-09-16 13:07 | Outpatient (CLI) | payer BC, SELFPAY ==
--- NOTE | ~2025-09-16 | DEXA_ITS ---
Bone Density Report Name: JCARLOS AMADOR Age: 59 Sex: Female Ethnicity: White Date of : 1965 Indication: postmenopausal; screening for osteoporosis; height loss; Referring Provider: FlavioDao Study: Bone densitometry was performed. Exam Date: September 16, 2025 Accession number: [id number] Bone Density: Region BMD T-score Z-score Classification AP Spine(L1-L4) 1.167 1.1 2.6 Normal Femoral Neck (Left) 0.963 1.0 2.3 Normal Total Hip (Left) 1.055 0.9 1.9 Normal Femoral Neck (Right) 0.908 0.5 1.8 Normal Total Hip (Right) 1.070 1.1 2.0 Normal Total Hip Mean 1.063 1.0 2.0 Normal World Health Organization criteria for BMD impression classify patients as: Normal (T-score at or above -1.0), Osteopenia (T-score between -1.0 and -2.5), or Osteoporosis (T-score at or below -2.5). 10-year Fracture Risk: FRAX not reported because: All T-scores for Spine Total, Hip Total, Femoral Neck at or above -1.0 Previous Exams: -- Region Exam Age BMD T-score BMD Change BMD Change Date g/cm2 vs Baseline vs Previous -- Total Hip(Left) 09/16/2025 59 1.055 0.9 -3.3%* -3.3%* 07/11/2022 56 1.091 1.2 Total Hip(Right) 09/16/2025 59 1.070 1.1 -3.5%* -3.5%* 07/11/2022 56 1.109 1.4 -- *Denotes significance at 95% confidence level, LSC for Total Hip = 0.027 g/cm2 Clinical Information Provided by Patient: Patient maximum height was 66 Menopause Age: 45 Drinks caffeinated beverages Onset of menses at age 9 Number of children 8 Impression: The patient has normal bone mass. The BMD for the Total Hip(Left) decreased, changing by -3.3% since the last DXA exam. The BMD for the Total Hip(Right) decreased, changing by -3.5% since the last DXA exam. Discussion: BONE DENSITY IS ABOVE THE MINIMUM DESIRABLE LEVEL AT ALL SKELETAL SITES TESTED. This patient?s bone mineral density is above the minimum desirable level (T-score -1.0 or better) at all sites measured. The patient should follow a healthful lifestyle (good nutrition with adequate calcium and vitamin D, and appropriate weight-bearing exercise). Follow-Up: Consider repeating this study in 3 to 4 years to reassess this patient's status, or sooner if there is some new clinical indication. Reported by: TANK on 09/16/2025 1:27:00 PM. Reviewed, dictated and finalized at location A.
== END 2025-09-16 13:08 | disposition home or self-care (01) ==
LOC: MICIMG 13:08
PROVIDERS: PCP Internal Medicine; Visit Provider Internal Medicine
DX: Z78.0 Asymptomatic menopausal state (principal)
CPT/HCPCS: 77080